=== PATIENT | male | born 1955 | race Two or more races ===

== ENCOUNTER 2020-11-15 18:12 | Inpatient (IN) | payer OTHER, BC ==
[2020-11-15] MEDS ORDERED: P-EPHED 60MG/TRIPROLIDI 2.5MG TABLET PO PRN (22:11)
[2020-11-15] MEDS ORDERED: BISMUTH SUBSALICYLATE 524 MG/30 ML UD PO PRN (22:11)
[2020-11-15] MEDS ORDERED: MAGNESIUM CITRATE 300 ML BOTTLE PO PRN (22:11)
[2020-11-15] MEDS ORDERED: METHOCARBAMOL 500 MG TABLET PO PRN (22:11)
[2020-11-15] MEDS ORDERED: ACETAMINOPHEN 325 MG TABLET (FP) PO PRN ×2 (22:11)
[2020-11-15] MEDS ORDERED: MAG HYDROX/AL HYDROX/SIMETH 30 ML UNIT-DOSE CUP PO PRN (22:11)
[2020-11-15] MEDS ORDERED: MAGNESIUM HYDROX 2400MG/30ML ORAL SUSPENSION 30 ML CUP PO PRN (22:11)
[2020-11-15] MEDS ORDERED: guaiFENesin 200 MG/10 ML 10 ML UNIT-DOSE CUPS PO PRN (22:11)
[2020-11-15] MEDS ORDERED: IBUPROFEN 400 MG TABLET (FP) PO PRN (22:11)
[2020-11-15] MEDS ORDERED: ONDANSETRON *ODT* 4 MG TABLET SL PRN (22:11)
[2020-11-15] MEDS ORDERED: NICOTINE POLACRILEX 2 MG GUM BUC PRN (22:11)
[2020-11-15] MEDS ORDERED: MENTHOL/PHENOL 1 EACH UD MM PRN (22:11)
[2020-11-15 22:45] VITALS: BMI 19.7
[2020-11-15] MEDS ORDERED: LORazepam 2 MG TABLET PO SCH (23:00)
[2020-11-15] MEDS: LORazepam 1 MG TABLET PO SCH (23:17)
[2020-11-16] MEDS: LORazepam 1 MG TABLET PO SCH ×4 (07:28→22:06)
[2020-11-16] MEDS: PRENATAL VITAMINS W/ FOLIC ACID TABLET (FP) PO SCH (10:33)
[2020-11-16] MEDS: NICOTINE 14 MG/24 HOURS TOPICAL PATCH TD SCH (10:34)
[2020-11-16 11:41] LABS: ALBUMIN 3.2 g/dl (3.4-5.0); BLOOD UREA NITROGEN 23.9 mg/dL (7-18); CALCIUM 9.6 mg/dL (8.5-10.1); HEMATOCRIT 31.5 % (35.4-49); HEMOGLOBIN 10.8 GM/dL (11.7-16.9); MCH 34.1 pg (25.7-33.7); MCHC 34.2 g/dl (32.0-35.9); MEAN CELL VOLUME 99.6 fl (80-96); MEAN PLT VOLUME 9.7 fl (7.5-11.1); PLATELET COUNT 181 K/MM3 (134-434); RBC 3.16 M/mm3 (4.00-5.60); WHITE BLOOD COUNT 4.9 K/mm3 (4.0-10.0)
[2020-11-16 11:45] LABS: BILIRUBIN,TOTAL 0.8 mg/dL (0.2-1); TOT PROT 8.6 g/dl (6.4-8.2)
[2020-11-16 11:47] LABS: POTASSIUM 4.7 mmol/L (3.5-5.1)
[2020-11-16] MEDS: LACTULOSE 20 GM/30 ML UDC (FOR ORAL USE ONLY) PO SCH ×2 (15:23→22:05)
[2020-11-16] MEDS: FERROUS SO4 325 MG TABLET (FP) PO SCH (17:52)
[2020-11-16] MEDS: THIAMINE HCL 100 MG TABLET (FP) PO SCH (22:06)
[2020-11-17] MEDS ORDERED: MELATONIN 1 MG TABLET PO ONE (00:04)
[2020-11-17] MEDS ORDERED: MELATONIN 5 MG TABLETS PO ONE (00:15)
[2020-11-17] MEDS: LORazepam 1 MG TABLET PO PRN ×2 (00:52→15:07)
[2020-11-17] MEDS: LORazepam 1 MG TABLET PO SCH ×4 (05:52→22:09)
[2020-11-17] MEDS: LACTULOSE 20 GM/30 ML UDC (FOR ORAL USE ONLY) PO SCH ×3 (05:53→22:08)
[2020-11-17] MEDS: FERROUS SO4 325 MG TABLET (FP) PO SCH ×3 (07:07→17:33)
[2020-11-17] MEDS: PRENATAL VITAMINS W/ FOLIC ACID TABLET (FP) PO SCH (10:27)
[2020-11-17] MEDS: NICOTINE 14 MG/24 HOURS TOPICAL PATCH TD SCH (10:27)
[2020-11-17] MEDS: THIAMINE HCL 100 MG TABLET (FP) PO SCH (22:09)
[2020-11-18] MEDS ORDERED: LORazepam 0.5 MG TABLET PO PRN
[2020-11-18] MEDS: LORazepam 0.5 MG TABLET PO SCH ×4 (06:12→22:16)
[2020-11-18] MEDS: LACTULOSE 20 GM/30 ML UDC (FOR ORAL USE ONLY) PO SCH ×3 (07:58→22:54)
[2020-11-18] MEDS: FERROUS SO4 325 MG TABLET (FP) PO SCH ×3 (07:59→18:18)
[2020-11-18] MEDS: PRENATAL VITAMINS W/ FOLIC ACID TABLET (FP) PO SCH (10:23)
[2020-11-18] MEDS: NICOTINE 14 MG/24 HOURS TOPICAL PATCH TD SCH (10:23)
[2020-11-18 12:07] LABS: BASO % 0.8 % (0-2.0); EOS % 5.3 % (0-4.5); HEMATOCRIT 31.1 % (35.4-49); HEMOGLOBIN 10.7 GM/dL (11.7-16.9); LYMPH % 36.7 % (8-40); MCH 34.2 pg (25.7-33.7); MCHC 34.5 g/dl (32.0-35.9); MEAN CELL VOLUME 99.1 fl (80-96); MEAN PLT VOLUME 9.6 fl (7.5-11.1); MONO % 12.9 % (3.8-10.2); NEUT % 44.3 % (42.8-82.8); PLATELET COUNT 164 K/MM3 (134-434); RBC 3.14 M/mm3 (4.00-5.60); RDW 12.9 % (11.9-15.9); WHITE BLOOD COUNT 3.9 K/mm3 (4.0-10.0)
[2020-11-18 12:39] LABS: ALBUMIN 3.1 g/dl (3.4-5.0); CALCIUM 9.4 mg/dL (8.5-10.1)
[2020-11-18 12:40] LABS: BLOOD UREA NITROGEN 13.4 mg/dL (7-18)
[2020-11-18 12:43] LABS: CREATININE 0.9 mg/dL (0.55-1.3)
[2020-11-18 12:44] LABS: BILIRUBIN,TOTAL 0.6 mg/dL (0.2-1); TOT PROT 8.4 g/dl (6.4-8.2)
[2020-11-18] MEDS: THIAMINE HCL 100 MG TABLET (FP) PO SCH (22:16)
[2020-11-19] MEDS ORDERED: LORazepam 0.5 MG TABLET PO ONE (05:00)
[2020-11-19] MEDS: LACTULOSE 20 GM/30 ML UDC (FOR ORAL USE ONLY) PO SCH (06:33)
[2020-11-19] MEDS: FERROUS SO4 325 MG TABLET (FP) PO SCH ×2 (07:30→13:14)
[2020-11-19] MEDS: PRENATAL VITAMINS W/ FOLIC ACID TABLET (FP) PO SCH (10:33)
[2020-11-19] MEDS: NICOTINE 14 MG/24 HOURS TOPICAL PATCH TD SCH (10:34)
[2020-11-19 13:48] VITALS: BP 145/86; PULSE 73; TEMP 98.3
== END 2020-11-19 14:30 | disposition home or self-care (01) | DRG 897 ==
LOC: YASAS 18:12 → Y3N 22:11
PROVIDERS: ADMIT Allergy & Immunology; ATTEND Allergy & Immunology
PROC: HZ2ZZZZ Detoxification Services for Substance Abuse Treatment (ICD-10-PCS; principal; 2020-11-15)
DX: F10.230 Alcohol dependence with withdrawal, uncomplicated (principal); F10.220 Alcohol dependence with intoxication, uncomplicated; F17.210 Nicotine dependence, cigarettes, uncomplicated; F31.9 Bipolar disorder, unspecified; D64.9 Anemia, unspecified; Z56.0 Unemployment, unspecified; Z59.0 Homelessness
CPT/HCPCS: 36415; 80053; 82140; 85025; 85027; 86780; 93005; 93010; C9803; U0003

== ENCOUNTER 2020-12-15 15:05 | Inpatient (IN) | payer OTHER, BC ==
[2020-12-15 15:59] VITALS: BMI 22.1
[2020-12-15] MEDS ORDERED: IBUPROFEN 400 MG TABLET (FP) PO PRN (19:57)
[2020-12-15] MEDS ORDERED: MAGNESIUM HYDROX 2400MG/30ML ORAL SUSPENSION 30 ML CUP PO PRN (19:57)
[2020-12-15] MEDS ORDERED: MENTHOL/PHENOL 1 EACH UD MM PRN (19:57)
[2020-12-15] MEDS ORDERED: chlordiazePOXIDE HCL 25 MG CAPSULE PO PRN (19:57)
[2020-12-15] MEDS ORDERED: MAGNESIUM CITRATE 300 ML BOTTLE PO PRN (19:57)
[2020-12-15] MEDS ORDERED: NICOTINE POLACRILEX 2 MG GUM BUC PRN (19:57)
[2020-12-15] MEDS ORDERED: ONDANSETRON *ODT* 4 MG TABLET SL PRN (19:57)
[2020-12-15] MEDS ORDERED: BISMUTH SUBSALICYLATE 524 MG/30 ML UD PO PRN (19:57)
[2020-12-15] MEDS ORDERED: chlordiazePOXIDE HCL 25 MG CAPSULE PO ONE (19:57)
[2020-12-15] MEDS ORDERED: ACETAMINOPHEN 325 MG TABLET (FP) PO PRN ×2 (19:57)
[2020-12-15] MEDS ORDERED: MAG HYDROX/AL HYDROX/SIMETH 30 ML UNIT-DOSE CUP PO PRN (19:57)
[2020-12-15] MEDS ORDERED: METHOCARBAMOL 500 MG TABLET PO PRN (19:57)
[2020-12-15] MEDS: NICOTINE 14 MG/24 HOURS TOPICAL PATCH TD SCH (23:33)
[2020-12-15] MEDS: chlordiazePOXIDE HCL 25 MG CAPSULE PO SCH ×3 (23:39→23:41)
[2020-12-15] MEDS: THIAMINE HCL 100 MG TABLET (FP) PO SCH (23:40)
[2020-12-15] MEDS: hydrOXYzine PAMOATE 25 MG CAPSULE (FP) PO SCH (23:40)
[2020-12-15] MEDS: MELATONIN 5 MG TABLETS PO SCH (23:41)
[2020-12-16] MEDS: chlordiazePOXIDE HCL 25 MG CAPSULE PO SCH ×4 (06:40→22:14)
[2020-12-16] MEDS: hydrOXYzine PAMOATE 25 MG CAPSULE (FP) PO SCH ×5 (06:40→22:14)
[2020-12-16] MEDS: NICOTINE 14 MG/24 HOURS TOPICAL PATCH TD SCH (10:11)
[2020-12-16] MEDS: PRENATAL VITAMINS W/ FOLIC ACID TABLET (FP) PO SCH (10:12)
[2020-12-16 12:23] LABS: HEMATOCRIT 29.4 % (35.4-49); HEMOGLOBIN 10.2 GM/dL (11.7-16.9); MCH 33.7 pg (25.7-33.7); MCHC 34.6 g/dl (32.0-35.9); MEAN CELL VOLUME 97.5 fl (80-96); MEAN PLT VOLUME 8.2 fl (7.5-11.1); PLATELET COUNT 322 K/MM3 (134-434); RBC 3.02 M/mm3 (4.00-5.60); RDW 13.1 % (11.9-15.9); WHITE BLOOD COUNT 4.9 K/mm3 (4.0-10.0)
[2020-12-16 12:37] LABS: BLOOD UREA NITROGEN 21.6 mg/dL (7-18); CALCIUM 9.4 mg/dL (8.5-10.1)
[2020-12-16 12:40] LABS: CREATININE 1.1 mg/dL (0.55-1.3)
[2020-12-16 12:42] LABS: BILIRUBIN,TOTAL 0.4 mg/dL (0.2-1); TOT PROT 8.3 g/dl (6.4-8.2)
[2020-12-16] MEDS: THIAMINE HCL 100 MG TABLET (FP) PO SCH (22:14)
[2020-12-16] MEDS: MELATONIN 5 MG TABLETS PO SCH (22:14)
[2020-12-17] MEDS: chlordiazePOXIDE HCL 25 MG CAPSULE PO SCH ×4 (06:08→22:57)
[2020-12-17] MEDS: hydrOXYzine PAMOATE 25 MG CAPSULE (FP) PO SCH ×5 (06:08→22:57)
[2020-12-17] MEDS: PRENATAL VITAMINS W/ FOLIC ACID TABLET (FP) PO SCH (10:30)
[2020-12-17] MEDS: NICOTINE 14 MG/24 HOURS TOPICAL PATCH TD SCH (10:35)
[2020-12-17] MEDS: MELATONIN 5 MG TABLETS PO SCH (22:57)
[2020-12-17] MEDS: THIAMINE HCL 100 MG TABLET (FP) PO SCH (22:57)
[2020-12-18] MEDS ORDERED: chlordiazePOXIDE HCL 10 MG CAPSULE PO PRN
[2020-12-18] MEDS: hydrOXYzine PAMOATE 25 MG CAPSULE (FP) PO SCH ×5 (05:35→22:27)
[2020-12-18] MEDS: chlordiazePOXIDE HCL 10 MG CAPSULE PO SCH ×4 (05:35→22:27)
[2020-12-18 08:08] LABS: SARS-CoV-2 NAA Not Detected (Not Detected)
[2020-12-18] MEDS: PRENATAL VITAMINS W/ FOLIC ACID TABLET (FP) PO SCH (10:32)
[2020-12-18] MEDS: NICOTINE 14 MG/24 HOURS TOPICAL PATCH TD SCH (10:32)
[2020-12-18] MEDS: MELATONIN 5 MG TABLETS PO SCH (22:27)
[2020-12-18] MEDS: THIAMINE HCL 100 MG TABLET (FP) PO SCH (22:27)
[2020-12-19] MEDS: chlordiazePOXIDE HCL 10 MG CAPSULE PO SCH ×2 (05:46→17:29)
[2020-12-19] MEDS: hydrOXYzine PAMOATE 25 MG CAPSULE (FP) PO SCH ×2 (05:46→10:40)
[2020-12-19] MEDS: NICOTINE 14 MG/24 HOURS TOPICAL PATCH TD SCH (10:39)
[2020-12-19] MEDS: PRENATAL VITAMINS W/ FOLIC ACID TABLET (FP) PO SCH (10:39)
[2020-12-19] MEDS ORDERED: hydrOXYzine PAMOATE 25 MG CAPSULE (FP) PO PRN (11:27)
[2020-12-19] MEDS: MELATONIN 5 MG TABLETS PO SCH (22:18)
[2020-12-19] MEDS: THIAMINE HCL 100 MG TABLET (FP) PO SCH (22:19)
[2020-12-20] MEDS ORDERED: chlordiazePOXIDE HCL 10 MG CAPSULE PO ONE (05:00)
[2020-12-20 06:15] VITALS: TEMP 97.6
[2020-12-20 10:05] VITALS: BP 116/78; PULSE 105
[2020-12-20] MEDS: PRENATAL VITAMINS W/ FOLIC ACID TABLET (FP) PO SCH (11:46)
[2020-12-20] MEDS: NICOTINE 14 MG/24 HOURS TOPICAL PATCH TD SCH (11:46)
== END 2020-12-20 09:45 | disposition home or self-care (01) | DRG 897 ==
LOC: YASAS 15:05 → Y3N 20:50
PROVIDERS: ADMIT Allergy & Immunology; ATTEND Allergy & Immunology
PROC: HZ2ZZZZ Detoxification Services for Substance Abuse Treatment (ICD-10-PCS; principal; 2020-12-15)
DX: F10.230 Alcohol dependence with withdrawal, uncomplicated (principal); F10.220 Alcohol dependence with intoxication, uncomplicated; F17.210 Nicotine dependence, cigarettes, uncomplicated; Z59.0 Homelessness
CPT/HCPCS: 36415; 80053; 85027; 86780; 93005; 93010; C9803; U0003; U0005